=== PATIENT | female | born 1970 | race Caucasian/White ===

== ENCOUNTER 2017-10-17 06:31 | Day surgery (SDC) | payer BC ==
[~2017-10-17] VITALS: Ht 165.1 cm; Wt 78.0 kg
[2017-10-17 06:55] VITALS: Ht 165.1 cm; Wt 78.0 kg
[2017-10-17] MEDS ORDERED: IBUP200C11 PO (07:02)
[2017-10-17 07:30] VITALS: BP 99/68; PULSE 63; RESP 20
--- NOTE | 2017-10-17 08:23 | OPPN ---
Date/Time of Note Date/Time of Note DATE: 10/17/17 TIME: 08:20 Proc Note GI Procedure Date 10/17/17 Indication: screening/surveillance, diagnostic Pre-procedure Diagnosis abd pain melena rectal bleeding Post-procedure Diagnosis gastritis gerd hemorrhoids Procedure Performed: Endoscopy, Colonoscopy Surgeon see signature line Operations Controller none Anesthesia Type: MAC Anesthesiologist: ROXANN BEY MD Tourniquet Time none EBL none Transfusion required none Biopsy 1: gastric bx Grafts/Implants none Tubes/Drains none Complication(s) none Disposition: PACU Procedure Description egd done under mac gastritis and gerd noted colonoscopy showed mini hemorrhoids SUNDAY VELIZ MD Oct 17, 2017 08:23
[2017-10-17 08:54] VITALS: BP 97/64; PULSE 57; RESP 18
--- NOTE | 2017-10-17 12:40 | GILP ---
DATE OF PROCEDURE: NAME OF PROCEDURE: Esophagogastroduodenoscopy. PREOPERATIVE DIAGNOSIS: Patient presenting with history of abdominal pain, history of melenic stool , rule out peptic ulcer disease, gastritis. POSTOPERATIVE DIAGNOSES: 1. Mild diffuse gastritis. 2. Mild reflux esophagitis. DESCRIPTION OF PROCEDURE: After the informed written consent was obtained, the patient was asked to lie on the left lateral side. The patient was given intravenous anesthesia by anesthesiologist, Dr Maria Luz Queen. When the patient became somnolent, the Olympus video upper endoscope was introduced int o the oropharynx, then into the esophagus. Esophagus appeared to show minimal erythema above the GE junction. Scope at this time was advanced into the stomach. Stomach showed evidence of several ar eas of erythema with no ulcers, no neoplasm and biopsy was done from the antrum, the lesser curvatur e and the fundus to rule out H. pylori infection. The duodenum appeared normal up to the end of the third portion. Scope at this time was withdrawn. No additional abnormalities detected and the pro cedure was terminated. PLAN: Recommend Pepcid 20 mg p.o. b.i.d. Dictated By: SUNDAY PARRA/MARILEE Conf#: [id number] DID#: [id number]
--- NOTE | 2017-10-17 12:42 | GILP ---
DATE OF PROCEDURE: PROCEDURE: Colonoscopy. PREOPERATIVE DIAGNOSIS: The patient presenting with rectal bleeding, irregular bowel movements, rul e out colorectal neoplasm. POSTOPERATIVE DIAGNOSIS: Minimal internal hemorrhoids. DESCRIPTION OF PROCEDURE: After the informed written consent was obtained, the patient was still in the left lateral side. Intravenous anesthesia was given by anesthesiologist, Dr. Queen. When t he patient became somnolent, Olympus video colonoscope was introduced into the rectum and scope was advanced all the way to the cecum. Entire colon appeared perfectly normal. Cecum appeared normal. No polyps, no neoplasm noted. At this time scope was withdrawn all the way out, no additional abno rmalities detected and minimal internal hemorrhoids noted and the procedure was terminated. PLAN: Recommend a high-fiber diet and repeat colonoscopy in 10 years. Dictated By: SUNDAY PARRA/MARILEE Conf#: [id number] DID#: [id number]
== END 2017-10-17 10:22 | disposition home or self-care (01) ==
LOC: GIL 06:31
PROVIDERS: ATTEND Internal Medicine Gastroenterology
DX: K92.1 Melena (principal); K64.8 Other hemorrhoids; K29.70 Gastritis, unspecified, without bleeding; K21.0 Gastro-esophageal reflux disease with esophagitis
CPT/HCPCS: 43239; 45378; 88305; Z7610